=== PATIENT | male | born 1970 | race Caucasian/White ===

== ENCOUNTER → 2019-04-18 17:20 | Outpatient (CLI) | payer OTHER, SELFPAY ==
[2019-04-18 17:39] LABS: Absolute Lymphocyte Count 1.53 X10^3/uL (0.83-4.51); Absolute Neutrophil Count 3.4 X10^3/uL (2.0-7.7); Basophil# 0.02 X10^3/uL; Basophil% 0.4 % (0-1); Eosinophil# 0.04 X10^3/uL; Eosinophils% 0.8 % (0-5); Hematocrit 43.8 % (40-54); Hemoglobin 15.2 g/dL (13.0-16.5); Lymphocyte # 1.53 X10^3/ul (4.0); Lymphocyte % 29.1 % (19-41); Mean Corp Hgb Conc 34.7 g/dL (32-36); Mean Corpuscular Hgb 29.3 pg (27.0-32.0); Mean Corpuscular Volume 84.6 fL (80-94); Mean Platelet Vol. 10.2 fl (6.2-12.0); Monocyte# 0.31 X10^3/uL; Monocyte% 5.9 % (0-10); NRBC Flagged by Analyzer 0 % (0-5); Neutrophil # 3.35 X10^3/uL (2.7-7.7); Neutrophil % 63.6 % (47-70); Platelet Count 155 K/mm3 (150-450); RBC Distribution Width CV 11.9 % (11.6-14.6); RBC Distribution Width SD 36.5 fl (35.1-43.9); Red Blood Count 5.18 M/mm3 (4.6-6.2); White Blood Count 5.3 K/mm3 (4.4-11.0)
[2019-04-18 18:12] LABS: ALB/GLOB Ratio 1.3 RATIO (0.9-2.4); AST(SGOT) 20 U/L (15-37); Alanine Aminotransfer ALT/SGPT 19 U/L (16-61); Albumin, Serum 4.3 g/dL (3.2-5.0); Alkaline Phosphatase 44 U/L (45-117); Anion Gap 8 (5-15); BUN 16 mg/dL (7-18); BUN/Creat Ratio 18.3 RATIO (10-20); CRP, High Sensitivity Cardiac 0.22 mg/L; Calcium,Total 8.8 mg/dL (8.5-10.1); Chloride 107 mmol/L (98-107); Creatinine, Serum 0.87 mg/dL (0.70-1.30); EST Glomerular Filtration Rate 99 mL/min (>60); Est Glom Filt Rate - Afr Amer 120 mL/min (>60); Globulin 3.2 g/dL (2.2-4.2); Glucose 78 mg/dL (74-106); Potassium 3.6 mmol/L (3.5-5.1); Protein, Total 7.5 g/dL (6.4-8.2); Sodium Level 143 mmol/L (136-145)
== END ==
PROVIDERS: Family Provider Family Medicine; PCP Family Medicine; Referring Provider Family Medicine; Visit Provider Family Medicine
DX: Z00.00 Encounter for general adult medical examination without abnormal findings (principal); Z82.49 Family history of ischemic heart disease and other diseases of the circulatory system; Z84.89 Family history of other specified conditions
CPT/HCPCS: 36415; 80053; 80061; 83695; 83704; 85025; 86141

== ENCOUNTER → 2019-04-28 07:13 | Outpatient (CLI) | payer OTHER, SELFPAY ==
[2019-05-02 17:05] LABS: Lipoprotein A 142.7 nmol/L (<75.0)
== END ==
PROVIDERS: Family Provider Family Medicine; PCP Family Medicine; Visit Provider Family Medicine
DX: Z00.00 Encounter for general adult medical examination without abnormal findings (principal); Z82.49 Family history of ischemic heart disease and other diseases of the circulatory system; Z84.89 Family history of other specified conditions
CPT/HCPCS: 83695

== ENCOUNTER → 2019-05-08 14:37 | Outpatient (CLI) | payer SELFPAY ==
[2019-04-28 09:47] VITALS: BMI 26.7
--- NOTE | 2019-05-08 14:45 | CT_ITS ---
STUDY: CARDIAC CALCIUM SCORING - CT CHEST REASON FOR EXAM: Male, 48 years old. Screening RADIATION DOSAGE (If Supplied By Facility): CTDIvol = ( 12.19 ) mGy, DLP = ( 195.04 ) mGycm TECHNIQUE: Axial non-enhanced images were acquired through the heart for the sole purpose of measuring coronary artery calcium. Individualized dose optimization techniques were used for this CT. COMPARISON: None. FINDINGS: Please see the patient's medical record for a personalized calcium score. CT/Limited Chest CT w/CCTA IMPRESSION: Please see the patient's medical record for a personalized calcium score. Please go to: [email or web address] , for a description of the calculator. Electronically Signed: Gallo Moise, at 15:57 EDT Tel , Service support ,
[2019-05-08 14:57] VITALS: BP 115/59; PULSE 67; RESP 19; O2SAT 100; BMI 26.4
--- NOTE | 2019-05-08 17:45 | CA.SCORE ---
Calcium Scoring Date of Study:: 05/08/19 Coronary Calcium Scoring: High-resolution Computed Tomographic imaging of the chest was performed on [05/08/2019], with particular attention paid to the coronary arteries. Images from the examination were analyzed for the presence and extent of coronary artery calcification , using coronary calcium quantification software. The patient tolerated the procedure well and there were no complications. The results of the coronary calcification analysis are provided below. - Findings Left Main (LM): 0 Left Anterior Descending (LAD): 0 Left Circumflex (LCX): 0 Right Coronary Artery (RCA): 0 Total Agatston Score: 0 Percentile Rankinth Calcium Scoring Interpretation: 0 No identifiable atherosclerotic plaque. Very low cardiovascular disease risk. <5% chance of presence coronary artery disease A Negative Examination 1-10 Minimal Plaque burden. Significant coronary artery disease very unlikely. 11-100 Mild plaque burden. Likely mild or minimal coronary atherosclerosis. 101-400 Moderate plaque burden Moderate non-obstructive coronary artery disease highly likely. Over 400 Extensive plaque burden. High likelihood of at least one significant coronary stenosis (>50% diameter) Calcium Score: 0 Negative Examination - The above is suggestive of no significant atherosclerotic plaquing.
== END ==
PROVIDERS: Family Provider Family Medicine; PCP Family Medicine; Referring Provider Internal Medicine Cardiovascular Disease; Visit Provider Internal Medicine Cardiovascular Disease
DX: I45.10 Unspecified right bundle-branch block (principal)
CPT/HCPCS: 75571; 76380

== ENCOUNTER → 2019-06-05 09:20 | Outpatient (CLI) | payer OTHER, SELFPAY ==
[2019-04-28 09:47] VITALS: BMI 26.7
[2019-05-08 14:57] VITALS: BMI 26.4
--- NOTE | 2019-06-05 09:23 | STE_ITS ---
Reason For Study: Abnormal EKG, Chest Pain Stress Results Protocol: Kwabena Protocol Maximum Predicted HR: 171 bpm Target HR: 145 bpm % Maximum Predicted HR: 95 % DurationHeart Rate Stage (mm:ss) (bpm) BP Comment Baseline 73 112/78No Chest Pain Kwabena Protocol Stage I 3:00 92 126/70No Chest Pain Kwabena Protocol Stage II 3:00 109 130/72No Chest Pain Kwabena Protocol Stage III 3:00 129 132/66No Chest Pain Kwabena Protocol Stage IV 3:00 162 140/62No Chest Pain Recovery 82 110/70No Chest Pain Stress Duration: 12:00 mm:ss Maximum Stress HR: 162 bpm METS: 13 Baseline Echocardiogram Findings Stress Echo Wall motion Data Resting WM Intermediate WM Stress WM Interpretation Summary Exercise stress echo. 49-year-old man with a family history of coronary artery disease. Stress protocol: Resting EKG demonstrates sinus bradycardia with a rate of 59 bpm normal intervals are noted resting blood pressures 112/78 mmHg. The patient exercised according to regular Kwabena protocol for total duration of 12 minutes the maximum heart rate attained was 162 bpm which was 94% of maximum predicted heart rate and maximum workload was 13.4 metabolic equivalents. At rest there were no ST or T wave changes noted suggest ischemia peak exercise upsloping ST changes were noted with no meet the criteria for ischemia. No clinical angina was noted. The test was terminated due to leg discomfort. The resting blood pressure was 112/78 mmHg with a peak blood pressure 152/64 mmHg. Stress echocardiographic images. Resting echocardiogram was performed demonstrating estimated ejection fraction of 55 to 60% the patient exercised according to regular Kwabena protocol as noted above for total duration of 13.4 metabolic equivalents. At peak exercise the estimated ejection fraction was approximately 65%. No wall motion of normalities were noted. Conclusion: Exercise stress EKG with no EKG criteria for ischemia at a high workload. Normal resting and stress echocardiographic images. Preserved ejection fraction. Excellent functional capacity Ordering Physician: Perico Santoro Referring Physician: Jose Carlos Stringer Performed By: Sam Garcia RCS
== END ==
PROVIDERS: Family Provider Family Medicine; PCP Family Medicine; Referring Provider Internal Medicine Cardiovascular Disease; Visit Provider Internal Medicine Cardiovascular Disease
DX: R94.31 Abnormal electrocardiogram [ECG] [EKG] (principal); R07.9 Chest pain, unspecified; Z82.49 Family history of ischemic heart disease and other diseases of the circulatory system
CPT/HCPCS: 93017; 93350

== ENCOUNTER 2020-09-13 08:37 | Day surgery (SDC) | payer OTHER, SELFPAY ==
[2019-08-16 07:37] VITALS: BMI 26.4
[2020-09-13] VITALS (7 sets, daily range): BP systolic 85–116; BP diastolic 48–76; PULSE 59–65; RESP 14–16; TEMP 36.4–37; O2SAT 95–100; BMI 28.5
[2020-09-13] MEDS: Lactated Ringers 1,000 ML 100 ML IV (09:15)
--- NOTE | 2020-09-13 09:23 | HP.PCM_ITS ---
History of Present Illness Date of Admission: 09/13/20 The patient is a 50 year old M here for screening colonoscopy. He has never had a colonoscopy in the past. He is on no blood thinners. He has no abdominal pain or blood in his stool. He denies any family history of colon cancer. Past Medical/Surgical History - Planned Operation Planned Operative Procedure/s: Colonoscopy Date of Operative Procedure: 09/13/20 Permit Signed: No Is This Patient Having a Total Joint: No - Previous Hospitalizations/Surgeries HX Hospitalizations: No HX of Surgeries: NONE Any Problems With Anesthesia: No You/Your Family Experience Fever (Hyperthermia) With Anes: No Cholinesterase deficiency: No - Cardiovascular Hx Chest Pain within Last 2 months: No Hx of Irregular Heartbeat and/or Afib: No Hx Heart Attack: No Hx Congestive Heart Failure: No Hx Rheumatic Fever: No Hx Hypertension: No Hx Internal Defibrillator: No Hx Pacemaker: No Hx Cardiac Surgery/Stents/Etc.: No Hx Stress Test: No HX Edema: No Hx Pain in Legs when Walking/Leg Cramps: No - Respiratory Chronic Cough: No HX of Shortness of Breath: No Hoarseness: No Hx Chronic Obstructive Pulmonary Disease (COPD): No Hx Asthma: No Hx Emphysema: No Hx Sleep Apnea: No Hx Oxygen Use at Home: No Hx Respiratory Tract Infection/Cold (presently): No Do You Snore Loudly (louder than talking or can be heard): Yes Do You Often Feel Tired/ Fatigued/ Sleepy Dring Daytime?: No Has Anyone Observed You Stop Breathing During Sleep?: No Result (for STOP score): Negative Smoking Status: Never smoker - Gastrointestinal Hx Gastroesophageal Reflux: No Hx Gastrointestinal Disorders: No Hx Gastrointestinal Bleed: No Hx Ulcer: No Hx Hiatal Hernia: No Difficulty Chewing/Swallowing: No Recent Onset of Swallowing Problems: No Special diet followed at home: No Hx Unplanned Weight Loss of 20#: No HX Unplanned Weight Gain of 20#: No - Neurological Hx Seizures: No HX Syncope/Blackout Spells/Unconsciousness: No Hx CVA/Stroke: No Hx Transient Ischemic Attacks (TIA): No Hx Multiple Sclerosis: No Hx Parkinson's Disease: No Hx Head/Neck Injury: No Hx Headaches: No Hx Back Injury/Pain: No Recent Onset of Speech Difficulty: No Restless Legs: No Does patient have nerve stimulator: No - Blood Disorder Hx Leukemia: No Bleeding Tendencies: No Hx Deep Vein Thrombosis: No Hx High Cholesterol: No Blood Transmitted Disease: No Hx Hepatitis: No Hx Cirrhosis: No Hx Anemia: No Hx Blood Disorders: No - Genitourinary Hx Renal Disease: No - Musculoskeletal Hx Arthritis: No Hx Rheumatoid Arthritis: No Hx Gout: No Recent Onset of an Orthopedic Problem: No - Endocrine Hx Diabetes: No Thyroid Disease: No Hx Steroid Therapy: No - Psycho/Social Hx Substance Use: No Hx Alcohol Use: No Hx Anxiety: No Hx Depression: No Mental Illness: No Hx Dementia: No - Miscellaneous Hx Cancer: No Recent Exposure to Contagious Disease: No Active MRSA: No Hx of C-Diff: No Any Loose Teeth: No Allergies No Known Allergies Allergy (Unverified 09/13/20 09:01) Sibling Family History: Family History (Last Reviewed 08/16/19 @ 07:34 by Tamiko Henson) Sister Sudden cardiac , Onset Age: 50 Grandfather Sudden cardiac , Onset Age: 59 Grandmother Heart disease Heart Disease, - - Discharge Is Pt Admitted From a Senior Living, or a [facility]: No - Physical Exam Vitals/I&O's: Vital Signs Temp Pulse Resp BP Pulse Ox 97.6 F L 62 14 116/75 100 09/13/20 09:02 09/13/20 09:02 09/13/20 09:02 09/13/20 09:02 09/13/20 09:02 Oxygen Delivery Method Room Air Weight: 210 lb 1.608 oz Body Mass Index (BMI) 28.5 General: Alert, Oriented x3 Neck: No JVD Lungs: Normal air movement Cardiovascular: Regular rate, Regular Rhythm Abdomen: Soft, Non Tender, Non-Distended Microbiology Past 72 Hours 09/12/20 08:54 Interface Orders SARS-CoV-2 Antigen (Rapid) - Final Current Medications Lactated Ringer's () 1,000 mls @ 100 mls/hr IV .Q10H GLENDY Last Admin: 09/13/20 09:15 Dose: 100 mls/hr Documented by: Assessment/Plan All Active Problems (Last Reviewed 08/16/19 @ 07:34 by Tamiko Henson) Flu syndrome (Acute) Abnormal electrocardiogram (Acute) Incomplete right bundle branch block (Acute) 50-year-old male for screening colonoscopy I explained endoscopy in detail to the patient. I explained the risks including but not limited to stroke or heart attack with anesthesia, perforation of the GI tract, bleeding, infection. I explained that any of these could necessitate further emergency surgery. The patient understands and all questions were answered sufficiently. The patient wishes to proceed with procedure. Ollie Olivarez MD Pager: [facility] [address] [place] [address] [address] [place] [address] Office: Surgery Risks - Colonoscopy Risks Include but are not Limited To: Risks include but are not limited to: Bleeding, perforation requiring further surgery, inability to complete colonoscopy requiring barium enema.
--- NOTE | 2020-09-13 09:58 | OP.CCLET_ITS ---
09/13/2020 Jose Carlos Stringer [address] [place] [address] Re : Colonoscopy procedure for Jarvis Chau Dear Dr. Stringer This procedure was performed on Sunday, September 13, 2020. My impressions and recommendations are as follows: Impressions : - The entire examined colon is normal on direct and retroflexion views. - No specimens collected. Recommendations : - Discharge patient to home. - Resume previous diet. - Continue present medications. - Repeat colonoscopy in 10 years for screening purposes. My findings are described in the full procedure note, which is enclosed. If I can be of further assistance, please feel free to contact me at Doctor phone number(s): , Work: . Sincerely, Ollie Olivarez MD 09/13/2020 9:58:14 AM This report has been signed electronically.
--- NOTE | 2020-09-13 09:58 | OP.COLON_ITS ---
Patient Name: Jarvis Chau Procedure Date: 09/13/2020 9:29 AM Date of : 1970 Age: 50 Procedure: Colonoscopy Indications: Screening for colorectal malignant neoplasm Providers: Ollie Olivarez MD Referring MD: Jose Carlos Stringer Medicines: Monitored Anesthesia Care Patient Profile: This is a 50 year old male. Refer to note in patient chart for documentation of history and physical. Last Colonoscopy: none. The patient's first colonoscopy is today. Complications: No immediate complications. Procedure: Pre-Anesthesia Assessment: - Prior to the procedure, a History and Physical was performed, and patient medications and allergies were reviewed. The patient's tolerance of previous anesthesia was also reviewed. The risks and benefits of the procedure and the sedation options and risks were discussed with the patient. All questions were answered, and informed consent was obtained. Prior Anticoagulants: The patient has taken no previous anticoagulant or antiplatelet agents. After reviewing the risks and benefits, the patient was deemed in satisfactory condition to undergo the procedure. After I obtained informed consent, the scope was passed under direct vision. Throughout the procedure, the patient's blood pressure, pulse, and oxygen saturations were monitored continuously. The pediatric colonoscope was introduced through the anus and advanced to the cecum, identified by appendiceal orifice and ileocecal valve. The colonoscopy was performed without difficulty. The patient tolerated the procedure well. The quality of the bowel preparation was good. Scope In: 9:43:06 AM Scope Withdrawal Time 0 hours 6 minutes 6 seconds Scope Out: 9:55:12 AM Total Procedure Duration Time 0 hours 12 minutes 6 seconds Findings: The entire examined colon appeared normal on direct and retroflexion views. Impression: - The entire examined colon is normal on direct and retroflexion views. - No specimens collected. Recommendation: - Discharge patient to home. - Resume previous diet. - Continue present medications. - Repeat colonoscopy in 10 years for screening purposes. Procedure Code(s): --- Professional --- 25116, Colonoscopy, flexible; diagnostic, including collection of specimen(s) by brushing or washing, when performed (separate procedure) Diagnosis Code(s): --- Professional --- Z12.11, Encounter for screening for malignant neoplasm of colon CPT copyright 2017 [employer]. All rights reserved. The codes documented in this report are preliminary and upon long distance operator review may be revised to meet current compliance requirements. Ollie Olivarez MD 09/13/2020 9:58:14 AM This report has been signed electronically. Number of Addenda: 0 Note Initiated On: 09/13/2020 9:29 AM
== END 2020-09-13 10:33 | disposition home or self-care (01) ==
LOC: EN 08:37 → AC 08:37
PROVIDERS: PCP Family Medicine; Referring Provider Family Medicine; Visit Provider Surgery
PROC: 0DJD8ZZ Inspection of Lower Intestinal Tract, Via Natural or Artificial Opening Endoscopic (ICD-10-PCS; CPT 45378; principal; 2020-09-13 09:55)
DX: Z12.11 Encounter for screening for malignant neoplasm of colon (principal); Z20.822 Contact with and (suspected) exposure to COVID-19
CPT/HCPCS: 45378; 87426; C9803; J7120

== ENCOUNTER 2021-02-21 17:07 | Emergency (ER) | payer OTHER, SELFPAY ==
[2020-09-13 09:02] VITALS: BMI 28.5
[2021-02-21 17:08] VITALS: BP 126/66; PULSE 66; RESP 15; TEMP 36.4; O2SAT 98; BMI 28.5
--- NOTE | 2021-02-21 17:29 | EDS_ITS ---
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 He notes that his lip started to swell so he went to the pharmacy and took a Benadryl. He reports that when he gets stung by bumblebee's about 2 hours after the sting he becomes sick. Never been stung by a hornet before he wanted to be evaluated. He denies any difficulty breathing. He does note that the lip swelling is coming into the right side of his neck. [facility] Medical History (Updated 02/21/21 @ 17:[address] Mark Hope DO) Basal cell carcinoma Family history of coronary artery disease Family history sudden in sister Home Medications prednisone 60 mg PO DAILY #12 tablet 02/21/21 [Rx Last Taken Unknown] Allergy/AdvReac Type Severity Reaction Status Date / Time No Known Allergies Allergy Unverified 02/21/21 17:10 Family History Sister Sudden cardiac , Onset Age: 50 Grandfather Sudden cardiac , Onset Age: 59 Grandmother Heart disease PPM Surgical History History of basal cell carcinoma excision History of melanoma excision Social History Smoking Status: Never smoker alcohol intake: current alcohol intake frequency: a few times a month ROS ROS ED Constitutional Constitutional ED: Denies chills or weight loss Eyes Eyes: Denies change in vision or diplopia ENT ENT ED: Reports other Details: Lower lip swelling ; Denies ear pain, rhinorrhea or sore throat Cardiovascular Cardiovascular: Denies chest pain, orthopnea, palpitations or racing heartbeat Respiratory/Chest Respiratory/Chest: Denies cough, dyspnea or orthopnea Gastrointestinal Gastrointestinal: Denies abdominal pain, diarrhea, nausea or vomiting Genitourinary Genitourinary ED: Denies dysuria, hematuria or urinary frequency Musculoskeletal Musculoskeletal: Denies arthralgias or myalgias Integumentary Denies abscess or rash Neurologic Neurologic: Denies headache(s) or weakness Psychiatric Psychiatric: Denies anxiety, depression, suicidal ideation or suicidal thoughts Endocrine Endocrinology: Denies polydipsia, polyphagia or polyuria Allergic/Immunologic Allergic/Immunologic ED: Denies mouth swelling, tongue swelling or urticaria EXAM Physical Exam Const Vital Signs: 02/21/21 17:08 Temperature 97.5 F L Temperature Source Temporal Pulse Rate 66 Respiratory Rate 15 Blood Pressure 126/66 H Blood Pressure Mean 86 Pulse Ox 98 Oxygen Delivery Method Room Air Positive well nourished and well developed General Appearance ED: well developed HEENT Reports normocephalic, head/scalp atraumatic and moist mucous membranes HEENT Narrative: There is swelling of the lower lip. There is swelling along the right inferior aspect of the mandible to the angle. No tongue or uvula swelling he appears to be handling secretions normally Eyes PERRL and EOMs intact bilaterally Neck no lymphadenopathy, supple and no JVD Resp normal respiratory effort and clear to auscultation bilaterally Cardio regular rate, regular rhythm and no murmurs GI normal to inspection, nondistended, normoactive bowel sounds and non-tender Palpation: soft Back/Spine no CVA tenderness and normal ROM Extremity normal to inspection General Extremety ED: Negative for edema General Extremity: Negative for edema Neuro oriented x3 and CN's II-XII intact bilaterally Sensorium / Orientation: alert Motor Exam: strength 5/5 throughout Psych mental status grossly normal Mood & Affect: Negative for depressed or tearful Skin no rashes or lesions noted and no wounds MDM MDM MDM Narrative Medical decision making narrative: Patient received prednisone and Pepcid. He was observed. 3 1/2 hours post envenomation he continues to do well. No further progression of his swelling. All right for him to have prednisone at home. Would continue Benadryl. Return if worsening or concerns. Discharge Plan Triage Chief Complaint: Allergic Reaction ED Provider: Mark Hope Dx/Rx/DC Orders Clinical Impression: Hornet sting Instructions: ED Insect Sting, Local Reaction Prescriptions: New prednisone 20 MG tablet 60 mg PO DAILY Qty: 12 RF: 0 Primary Care Provider: Jose Carlos Stringer Referrals: Jose Carlos Stringer DO [Primary Care Provider] - As Needed Disposition Disposition: Home, Self Care
[2021-02-21] MEDS: predniSONE 20 MG Tablet 60 MG PO (17:42)
[2021-02-21] MEDS: Famotidine 20 MG Tablet 40 MG PO (18:03)
[2021-02-21 19:03] VITALS: BP 114/74; PULSE 63; RESP 16; O2SAT 99
== END 2021-02-21 19:04 | disposition home or self-care (01) ==
LOC: ED 17:32
PROVIDERS: Emergency Provider Emergency Medicine; PCP Family Medicine
DX: T63.441A Toxic effect of venom of bees, accidental (unintentional), initial encounter (principal); T78.49XA Other allergy, initial encounter; R22.0 Localized swelling, mass and lump, head; Y92.9 Unspecified place or not applicable; Z85.828 Personal history of other malignant neoplasm of skin
CPT/HCPCS: 99283

== ENCOUNTER → 2022-07-23 | Outpatient (CLI) | payer OTHER, SELFPAY ==
[2022-07-23 11:03] LABS: Anion Gap 7 (5-15); BUN 15 mg/dL (7-18); BUN/Creat Ratio 14.4 RATIO (10-20); Calcium,Total 9.1 mg/dL (8.5-10.1); Chloride 103 mmol/L (98-107); Creatinine, Serum 1.04 mg/dL (0.70-1.30); EST Glomerular Filtration Rate 80 mL/min (>60); Est Glom Filt Rate - Afr Amer 96 mL/min (>60); Glucose 106 mg/dL (74-106); Potassium 3.9 mmol/L (3.5-5.1); Sodium Level 138 mmol/L (136-145)
== END | disposition home or self-care (01) ==
PROVIDERS: PCP Family Medicine; Referring Provider Physician Assistant; Visit Provider Physician Assistant
DX: U07.1 COVID-19 (principal)
CPT/HCPCS: 36415; 80048

== ENCOUNTER 2024-09-28 18:32 | Emergency (ER) | payer OTHER, SELFPAY ==
[2024-09-28 18:33] VITALS: BP 125/82; PULSE 67; RESP 18; TEMP 36.7; O2SAT 97
--- NOTE | 2024-09-28 19:19 | RAD_ITS ---
PROCEDURE: TIBIA FIBULA 2 VIEWS REASON FOR EXAM: Trauma TECHNIQUE: 2 view(s) of each tibia and fibula COMPARISON: None. FINDINGS: LEFT TIBIA / FIBULA: No fracture. No suspicious bone lesion. Normal alignment at the knee and ankle. Soft tissues are unremarkable. RAD/Tibia & Fibula 2 Views IMPRESSION: No acute osseous abnormality in the left tibia and fibula. Reading Location: [facility]
--- NOTE | 2024-09-28 19:19 | RAD_ITS ---
PROCEDURE: CHEST PA AND LATERAL REASON FOR EXAM: Trauma TECHNIQUE: Frontal and lateral views of the chest. COMPARISON: None. FINDINGS: The heart size is normal. The mediastinal contour is unremarkable. The lungs are clear. Degenerative changes are identified within the thoracic spine. RAD/Chest PA and Lateral IMPRESSION: No radiographic evidence of acute cardiopulmonary disease Reading Location: [facility]
--- NOTE | 2024-09-28 19:19 | RAD_ITS ---
PROCEDURE: SHOULDER MIN 2 VIEWS REASON FOR EXAM: Trauma TECHNIQUE: One (1) view of each shoulder COMPARISON: None. FINDINGS: RIGHT SHOULDER: No fracture. No suspicious bone lesion. Normal alignment of the acromioclavicular and glenohumeral joints. Soft tissues are unremarkable. RAD/Shoulder min 2 Views IMPRESSION: No acute osseous abnormality in the right shoulder Reading Location: [facility]
--- NOTE | 2024-09-28 19:19 | RAD_ITS ---
PROCEDURE: THORACIC SPINE 2 VIEWS REASON FOR EXAM: Trauma TECHNIQUE: Single lateral view of the thoracic spine COMPARISON: None. FINDINGS: No evidence of fracture. Mild wedging of the thoracic vertebral bodies. Disc space heights are preserved. Mild kyphosis. No spondylolisthesis. RAD/Thoracic Spine 2 Views IMPRESSION: Mild degenerative changes throughout the thoracic spine with no acute osseous a bnormality Reading Location: [facility]
--- NOTE | 2024-09-28 19:21 | EDS_ITS ---
HPI History of Present Illness Chief Complaint: Trauma Informant: patient and spouse/S.O. Onset/Context/Timing Onset: Today and Hours Mechanism/Context: Blunt Injury Location of pain/injuries: Right shoulder and Left lower leg Quality of Pain: Sharp Current Severity: Moderate Maximum Severity: Moderate Associated Symptoms Associated Symptoms: Negative for Parasthesias, Weakness, Loss of function, Inability to ambulate, Loss of consciousness or Amnesia Narrative Narrative: Healthy 54-year-old male no signal past medical history other than skin cancer. On no medications. No blood thinners. He was trampled by about 1300 pound cow. Complaining primarily of right shoulder pain. No LOC. No head injury. Denies neck pain. Also injury to his left lower leg. This occurred about 5:45 tonight. Denies any chest or abdominal pain. Prior similar symptoms: No Recent Illness/Hospitalization: No PFSH PFSH Medical History COVID-19 Family history of coronary artery disease Family history sudden in sister Basal cell carcinoma Home Medications ?Medication ?Instructions ?Recorded ?Last Taken ?Type dexamethasone 6 mg tablet 6 mg PO DAILY #5 tabs Unknown Rx metaxalone 800 mg tablet 800 mg PO TID #21 tabs 09/28 Unknown Rx Allergy/AdvReac Type Severity Reaction Status Date / Time No Known Allergies Allergy Verified 09/28/24 18:33 Family History Sister Sudden cardiac , Onset Age: 50 Grandfather Sudden cardiac , Onset Age: 59 Grandmother Heart disease PPM Surgical History History of basal cell carcinoma excision History of melanoma excision Social History Smoking Status: Never smoker alcohol intake: current alcohol intake frequency: a few times a month ROS ROS ED ROS Narrative Denies recent illness. Constitutional Constitutional ED: Denies chills or fever(s) Eyes Eyes: Denies blurry vision ENT ENT ED: Denies ear pain Cardiovascular Cardiovascular: Denies chest pain Respiratory/Chest Respiratory/Chest: Denies cough or dyspnea Gastrointestinal Gastrointestinal: Denies abdominal pain Genitourinary Genitourinary ED: Denies dysuria or hematuria Musculoskeletal Musculoskeletal: Reports back pain and other; Denies arthralgias Neurologic Neurologic: Denies headache(s) Psychiatric Psychiatric: Denies anxiety Endocrine Endocrinology: Denies cold intolerance Hematologic/Lymphatic Hematologic/Lymphatic: Denies easy bleeding, easy bruising or lymphadenopathy Allergic/Immunologic Allergic/Immunologic ED: Denies mouth swelling, tongue swelling or urticaria EXAM Physical Exam Narrative Exam Narrative: Well-appearing 55-year-old male. Sitting upright in bed. 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 Vital signs are stable afebrile. He is no distress. H EENT exam pupils are round reactive light. No signs of trauma to his face or scalp. Nontender. No hematomas. Neck and C-spine nontender. Trachea midline. Lungs clear to auscultation bilaterally. Heart regular rhythm rate about 70 no murmur. Chest wall and ribs anteriorly nontender. Abdomen soft nontender. No peritoneal signs. No bruising or signs of trauma. Pelvic girdle intact. Moving all 4 extremities. Normal range of motion. No deformity. 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 Equal symmetrical radial pulses. Normal range of motion of both lower extremities. He has tenderness to his left proximal calf. There is no bony deformity. He has normal dorsi and plantarflexion. Normal touch sensation and strength. Normal range of motion. Back he has tenderness along his left posterior inferior shoulder blade. Mildly over the rib cage posteriorly in that same area. No bruising. Thoracic and lumbar spine are nontender. There is no signs of ecchymosis or bruising to his back. Neurologically is awake and alert. GCS of 15. No focal motor or sensory deficits. Answering questions following commands. Normal strength and sensation. Const Vital Signs: 09/28/24 18:33 09/28/24 18:39 09/28/24 20:44 Temperature 98.0 F Temperature Source Temporal Pulse Rate 67 70 Respiratory Rate 18 16 Respiratory Effort Normal Non-Labored Blood Pressure 125/82 H 122/74 H Blood Pressure Mean 96 90 Pulse Ox 97 99 Oxygen Delivery Method Room Air 09/28/24 20:45 Temperature 97.9 F Temperature Source Pulse Rate 70 Respiratory Rate 16 Respiratory Effort Blood Pressure 122/74 H Blood Pressure Mean 90 Pulse Ox 99 Oxygen Delivery Method Positive well nourished and well developed; Negative for cachectic, contractures or unkempt General Appearance ED: well developed and NAD; Negative for unkempt, cachectic or contractures Nutritional Appearance: Negative for cachectic HEENT atraumatic; Negative for trauma or tenderness Eyes PERRL and EOMs intact bilaterally Neck full ROM General: Negative for tenderness Chest Wall inspection of chest normal and palpation of chest normal Resp normal respiratory effort and clear to auscultation bilaterally Auscultation: Negative for rales, rhonchi, wheezes or diminished lung sounds Cardio regular rhythm, S1 normal heart sound, S2 normal heart sound and no murmurs Palpation: Negative for palpable S3 Rate: regular rate GI normal to inspection, nondistended, normoactive bowel sounds, non-tender, non- distended and no masses Auscultation: normoactive bowel sounds Palpation: soft; Negative for tender, guarding or rebound tenderness present Back/Spine normal to inspection and no thoracic nor lumbar tenderness Back/Spine Narrative: Tenderness along the right posterior shoulder blade. No ecchymosis or bruising. Posterior ribs in that area mildly tender. No crepitance or subcu air. General Back: Negative for CVA tenderness Thoracic Spine / Upper Back: Negative for thoracic spinal tenderness Extremity normal to inspection and full ROM Extremity Narrative: Except left posterior calf tenderness consistent with soft tissue contusion. No bruising. No bony deformity. Normal range of motion of both upper and lower extremities. Neuro oriented x3, CN's II-XII intact bilaterally, moves all extremities, no focal motor deficits and no sensory deficits noted Mana Coma Scale: document GCS findings Spontaneous Obeys Commands Oriented 15 Sensorium / Orientation: alert, oriented to person, oriented to place and oriented to time; Negative for orientation impaired Motor Exam: strength 5/5 throughout Psych mental status grossly normal and thought process normal Appearance: Negative for unkempt Attitude: No agitated Mood & Affect: Negative for depressed, anxious or tearful Skin no rashes or lesions noted, no wounds, skin turgor normal and no jaundice Rashes: No rashes noted Trauma: Negative for abrasion Wounds: Negative for wounds noted MDM MDM MDM Narrative Medical decision making narrative: 54-year-old male run over by a 1300 pound cow. Complaining of pain by his right shoulder blade posterior right sided rib cage and left lower leg. Exam otherwise is benign. He was not knocked out. I do not think he needs any CAT scans. His abdomen is completely nontender he has no abdominal or anterior chest pain. Plain x-rays of be obtained. He wanted something for pain but did not want a narcotic open given IV Toradol and some Skelaxin for muscle spasms. Repeat exam around 8:40 PM. Still tenderness around the soft tissue inferior and medial to the scapula. We went over his x-rays. Chest and abdomen are benign. He has normal range of motion of his neck. We talked about his x-rays being normal. We discussed a CAT scan which she did not want at this time. He knows that he is not improving he can follow-up and we will get a CAT scan of his chest and thoracic spine. History & Record Review Discussion w/independent historian: Patient and Family ( at bedside.) Radiography Chest X-Ray - ED: 2 View Diagnostic Testing: Clinical Impression(s) from Imaging Studies Chest X-Ray 09/28/24 19:19 IMPRESSION: No radiographic evidence of acute cardiopulmonary disease Reading Location: [facility] Shoulder X-Ray 09/28/24 19:19 IMPRESSION: No acute osseous abnormality in the right shoulder Reading Location: [facility] [facility] [employer] [facility] Thoracic Spine X-Ray 09/28/24 19:19 IMPRESSION: Mild degenerative changes throughout the thoracic spine with no acute osseous abnormality Reading Location: [facility] Tibia/Fibula X-Ray 09/28/24 19:19 IMPRESSION: No acute osseous abnormality in the left tibia and fibula. Reading Location: [facility] Chest x-ray, 2 views AP and lateral, interpreted by myself and the radiologist shows no acute abnormality. No fracture. No pneumothorax. Normal cardiac silhouette. Normal lung ybarra. Right shoulder x-ray , 4 views interpreted myself and radiologist shows no fracture or dislocation. Scapula appears normal. Right tib-fib x-ray 4 views interpreted myself and radiologist shows no fracture or dislocation. Discharge Plan Triage Chief Complaint: Trauma ED Provider: Alek Flores Dx/Rx/DC Orders Clinical Impression: Back contusion, Contusion of leg Instructions: ED Back Contusion, ED Contusion, Lower Extremity Prescriptions: New metaxalone 800 mg tablet 800 mg PO TID Qty: 21 0RF No Action dexamethasone 6 mg tablet 6 mg PO DAILY Qty: 5 0RF Primary Care Provider: Jose Carlos Stringer Referrals: Jose Carlos Stringer, [Primary Care Provider] - 1 Week if not improving Activity Restrictions/Additional Instructions: Ice all sore areas to decrease pain and inflammation. Hot shower, warm bath, hot tub, massage to relax the muscles Alternate Motrin for pain and inflammation and Tylenol for pain. The muscle relaxant Skelaxin 3 times a day to help with muscle spasms. If you are not improving and getting worse you may need a CAT scan. Call or get a hold me if you need anything. Print Language: Lithuanian Disposition Disposition: Home, Self Care
[2024-09-28] MEDS: Ketorolac 30 MG/ML Syringe IV (19:45)
[2024-09-28] MEDS: Metaxalone 800 MG Tablet PO (19:55)
[2024-09-28 20:44] VITALS: BP 122/74; PULSE 70; RESP 16; O2SAT 99
[2024-09-28 20:45] VITALS: BP 122/74; PULSE 70; RESP 16; TEMP 36.6; O2SAT 99
== END 2024-09-28 21:05 | disposition home or self-care (01) ==
PROVIDERS: Emergency Provider Emergency Medicine; PCP Family Medicine; Referring Provider Emergency Medicine; Visit Provider Emergency Medicine
DX: S20.229A Contusion of unspecified back wall of thorax, initial encounter (principal); S80.12XA Contusion of left lower leg, initial encounter; M25.511 Pain in right shoulder; R07.82 Intercostal pain; W55.22XA Struck by cow, initial encounter
CPT/HCPCS: 71046; 72070; 73030; 73590; 96374; 99283; A4216

== ENCOUNTER → 2024-09-30 | Outpatient (CLI) | payer OTHER, SELFPAY ==
--- NOTE | 2024-09-30 10:56 | CT_ITS ---
PROCEDURE: CHEST WITHOUT CONTRAST REASON FOR EXAM: Trauma, right scapula, posterior rib and upper thoracic pain TECHNIQUE: Chest CT without contrast. COMPARISON: None. FINDINGS: Hardware: None. Lymph nodes: No mediastinal hilar or axillary lymphadenopathy. Heart and Vasculature: Normal heart size. No pericardial effusion. Thoracic aorta and pulmonary arteries have normal contours; noncontrast technique limits evaluation. Coronary Artery Calcifications: Lungs and Airways: The lungs are normally expanded and clear. Pleura: No pleural effusion. No pneumothorax. Upper Abdomen: Visualized portions of the upper abdominal viscera are unremarkable. Bones: Bone windows are unremarkable. No acute fracture. CT/Chest without Contrast IMPRESSION: No acute or significant CT abnormality in the chest. One or more dose reduction techniques were used (e.g., Automated exposure contr ol, adjustment of the mA and/or kV according to patient size, use of iterative reconstruction technique). Reading Location: [facility]
== END | disposition home or self-care (01) ==
LOC: CT 10:55
PROVIDERS: PCP Family Medicine; Referring Provider Emergency Medicine; Visit Provider Emergency Medicine
DX: R07.82 Intercostal pain (principal); M25.511 Pain in right shoulder; M54.6 Pain in thoracic spine
CPT/HCPCS: 71250

== ENCOUNTER → 2024-10-17 | Outpatient (CLI) | payer OTHER, SELFPAY ==
--- NOTE | 2024-10-17 06:45 | RAD_ITS ---
PROCEDURE: ORBITS FOR FOREIGN BODY REASON FOR EXAM: HX METAL TO EYE; PRE MRI TECHNIQUE: 2 view(s) of the orbits. COMPARISON: None. FINDINGS: No evidence of displaced orbit fracture. No radiopaque foreign body. Visualized paranasal sinuses appear clear. RAD/Orbits for Foreign Body IMPRESSION: NEGATIVE ORBIT X-RAYS Reading Location: [id number]
--- NOTE | 2024-10-17 07:04 | MRI_ITS ---
PROCEDURE: SPINE CERVICAL (ROUTINE) REASON FOR EXAM: PAIN TECHNIQUE: Cervical spine MRI without intravenous gadolinium-based contrast. CONTRAST: None COMPARISON: Cervical spinal radiographs 10/06/2024. Comparison also made with CT chest 09/30/2024. FINDINGS: Vertebral heights are preserved. No suspicious or appreciable marrow abnormality. Known nondisplaced fracture involving the RIGHT lateral aspect of C7 much better seen 09/30/2024 with mild marrow edema in the region extending into the right lateral mass/articular processes and pedicle. Note that some of this anatomy extends lateral beyond the field view of sagittal sequences. Similar trace anterolisthesis at C6-C7, presumably degenerative. Cord signal within limits. C2-3: Minimal uncovertebral arthropathy. No appreciable spinal canal or foraminal stenosis. C3-4: Minimal uncovertebral arthropathy. No appreciable spinal canal or foraminal stenosis. C4-5: Minimal uncovertebral arthropathy, [id number]-right. No spinal canal or foraminal stenosis. C5-6: Mild broad-based disc bulging asymmetric to the left. Minimal facet/uncovertebral arthropathy. No significant spinal canal or right foraminal stenosis. Mild left foraminal stenosis. C6-7: Trace anterolisthesis as above with associated disc uncovering. Mild loss of disc height with diffuse disc bulging and superimposed right foraminal disc protrusion. Facet/uncovertebral arthropathy, [id number]-left. Moderate/severe right and mild left foraminal stenosis. C7-T1: No appreciable spinal canal or foraminal stenosis. Other:: Mild/moderate mucosal thickening in the partially imaged right maxillary right maxillary sinus. MRI/Spine Cervical (Routine) IMPRESSION: 1. Nondisplaced fracture involving the right lateral aspect of C7 much better s een on CT chest 10/01/2024. 2. Multilevel spondylosis as above. Foraminal stenoses as detailed, up to moder ate/severe on the right at C6-C7. No significant spinal canal stenosis. 3. Right maxillary paranasal sinus disease. 4. Additional description as above. Reading Location: [id number]
== END | disposition home or self-care (01) ==
LOC: MRI 06:56
PROVIDERS: PCP Family Medicine; Referring Provider Student in an Organized Health Care Education/Training Program; Visit Provider Student in an Organized Health Care Education/Training Program
DX: S12.691A Other nondisplaced fracture of seventh cervical vertebra, initial encounter for closed fracture (principal); M54.12 Radiculopathy, cervical region
CPT/HCPCS: 70030; 72141

== ENCOUNTER → 2024-10-20 | Outpatient (CLI) | payer OTHER, SELFPAY ==
--- NOTE | 2024-10-20 08:58 | RAD_ITS ---
EXAM: XR Cervical Spine, 2 or 3 Views CLINICAL INDICATION: PAIN TECHNIQUE: Frontal and lateral views of the cervical spine. COMPARISON: No relevant prior studies available. FINDINGS: VERTEBRAE: Unremarkable. No definite fracture. Normal alignment. DISC SPACES: No acute findings. No significant narrowing. SOFT TISSUES: Unremarkable. RAD/Cerv Spine 2 or 3 Views IMPRESSION: Unremarkable exam. [facility]
== END | disposition home or self-care (01) ==
LOC: RAD 08:53
PROVIDERS: PCP Family Medicine; Referring Provider Orthopaedic Surgery Orthopaedic Surgery of the Spine; Visit Provider Orthopaedic Surgery Orthopaedic Surgery of the Spine
DX: S12.691A Other nondisplaced fracture of seventh cervical vertebra, initial encounter for closed fracture (principal); X58.XXXA Exposure to other specified factors, initial encounter
CPT/HCPCS: 72040

== ENCOUNTER → 2024-11-09 | Outpatient (CLI) | payer OTHER, SELFPAY ==
--- NOTE | 2024-11-09 07:30 | RAD_ITS ---
EXAM: XR Cervical Spine, 2 or 3 Views CLINICAL INDICATION: PAIN TECHNIQUE: Frontal and lateral views of the cervical spine. COMPARISON: No relevant prior studies available. FINDINGS: VERTEBRAE: Grade 1 anterior spondylolisthesis of C6 over C7. No definite fracture. DISC SPACES: No acute findings. No significant narrowing. SOFT TISSUES: Unremarkable. RAD/Cerv Spine 2 or 3 Views IMPRESSION: Grade 1 anterior spondylolisthesis of C6 over C7. Reading Location: [facility]
== END | disposition home or self-care (01) ==
PROVIDERS: PCP Family Medicine; Referring Provider Orthopaedic Surgery Orthopaedic Surgery of the Spine; Visit Provider Orthopaedic Surgery Orthopaedic Surgery of the Spine
DX: M43.12 Spondylolisthesis, cervical region (principal); S12.691A Other nondisplaced fracture of seventh cervical vertebra, initial encounter for closed fracture; X58.XXXA Exposure to other specified factors, initial encounter
CPT/HCPCS: 72040

== ENCOUNTER 2024-12-08 12:30 | Outpatient (RCR) | payer OTHER, SELFPAY ==
--- NOTE | 2024-11-14 14:38 | HP.PTEVAL ---
Patient's Visit Information Visit Information Visit Information: SVEN BURROUGHS is a 54 year old M referred to Physical Therapy by Dr. Aroldo Saucedo MD with a diagnosis of CLOSED C7 FX AND CERVICAL RADICULOPATHY. Date of Evaluation: 11/14/24 Physical Therapist: Anna Argueta PT, Cert MDT Visit Plan Frequency: 2-3x /Week Duration: 4-6 Weeks Plan: *AVOID PERIPHERALIZATION OF PAIN, NUMBNESS AND TINGLING WITH EXERCISE* POSTURE CORRECTION/STRENGTHENING. INSTRUCTION IN APPROPRIATE BODY MECHANICS AND ACTIVITY MODIFICATIONS. CERVICAL ISOMETRICS. R UE STRENGTHEING: FOCUS ON SCAPULAR STRENGTH AND STABILIZATION ALONG WITH TRICEP STENGTHENING R UE. HEP INSTRUCTION. Subjective Subjective: Work/Leisure: [employer] Present symptoms: NO PAIN FOR ABOUT A WEEK. SOME PAIN DOWN THE BACK OF R ARM TO FOREARM. ALSO SOME PAIN IN R SHLD BLADE AROUND UNDER ARM PIT INTO CHEST - AGAIN NOT FOR ABOUT A WEEK. NEAR CONSTANT DISTAL FINGER NUMBESS DIGITS 2, 3 AND 4. DENIES NECK PAIN. DENIES ANY OTHER NUMBENSS. NO L UE SX'S. TWO NIGHTS AGO HAD SOME CRAMPING AND TIGHTENING IN R SHLD BLADE/ARM PIT AND CHEST AREA THAT IS PAINFUL - THIS COMES AND GOES MAINLY AT NIGHT WITH REACHING. CHIEF COMPLAINT IS R UE WEAKNESS. NUMBNESS STARTED 4 WKS POST ACCIDENT. Present since: 09/28/24 Getting Better, Getting Worse or Staying the Same: GETTING BETTER. A LOT BETTER THAN IT WAS AND STILL IMPROVING. REPORTS 80% IMPROVEMENT. Pain Scale: Worst - 5/10 Least - 0/10 Currently: 0/10 Commenced as a result of: RAN OVER BY A HEIFER. Symptoms at onset: BACK SNAPPED AND CRACKED. Worse: STILL HAVING WEAKNESS WITH STEERING, REACHING, PUSHING, PULLING. PAIN: REACHING UP, SHOVELING, PUSHING, PROLONGED SITTING Better: CURRENTLY THE PAIN IS FLEETING AND DOESN'T HANG AROUND. IF REACHING PROVOKES IT BRING ARM DOWN TAKES IT AWAY. Disturbed sleep: NO. WEARING NECK BRACE AT NIGHT. Previous history/Previous treatment: UNREMARKABLE This episode: INITIALLY DIDN'T SEE THE FRACTURE UNTIL CAT SCAN ABOUT 1 WK POST ACCIDENT. THEN WORE NECK BRACE ALL THE TIME X 5 WKS EXCEPT TO SHOWER. LAST Wednesday11/09/24 ALLOWED TO START WEANING OUT OF NECK BRACE. 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 OUT OF NECK BRACE A COUPLE HOURS A DAY. ONCE ABLE TO GO ALL DAY WITHOUT IT CAN SLEEP WITHOUT IT. NECK GETS TIRED WHEN OUT OF IT A COUPLE HOURS. NO INCREASED C/O PAIN OR NUMBNESS SINCE STARTING TO WEAN OUT OF BRACE. NO SURGERY. CONSIDERING SURGERY IF DOESN'T GET STRENGTH BACK. 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 MEDICATION INITIALLY BUT NONE FOR A COUPLE OF WEEKS. Dizziness: NO Tinnitus: NO Nausea: NO Shortness of Breath: NO Difficulty Swallowing: NO Gait: NORMAL Imaging: SEE [facility] EMR PMH/Recent major surgery: UNREMARKABLE. OTHER: NO FURTHER FOLLOW UP SCHEDULED WITH DR. SAUCEDO UNLESS PATIENT DOESN'T GET BETTER AND WANTS TO HAVE SURGERY. NO SPECIFIC RESTRICTIONS AT THIS POINT. Objective Objective: Sitting Posture/Standing Posture: FH AND ROUNDED SHOULDERS. NO TORTICOLLIS. Active Correction of posture: ABLE TO CORRECT BUT NOT MAINTAIN. Other Observations: THIS PATIENT AMBULATES INDEP'LY INTO PT WITHOUT WEARING NECK BRACE BUT HE BROUGHT IT WITH HIM TO DAY. Sensory deficit: DECREASED LIGHT TOUCH SENSATION ULNAR R WRIST AND R 3RD DIGIT COMPARED TO LEFT. ROM deficit: FULL CHUNG UE ROM ALL PLANES BUT C/O TIGHT FEELING IN R CHEST WITH FULL ELEVATION OF R UE. 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 R SHLD GROSSLY 3+/5, BICEPS 4/5, TRICEPS 2+/5, R CURING OVEN ATTENDANT STRENGTH 104 LBS. Reflexes: UNABLE TO ELICIT CHUNG UE DTR'S Dural Signs: + R UE. Cervical Mvmt Loss: Flex: NIL Pro: NIL Ext: MOD Ret: DAVID RSB: MOD LSB: MOD R Rot: MIN L Rot: MIN Postural strength: POOR. FATIGUES QUICKLY. Balance/Special Test Scores Oswestry Neck Score: 2 Goals Goal 1:: INCREASE FUNCTIONAL STRENGTH OF R UE SYMMETRICAL WITH L UE. Goal Time Frame: 6-8 Weeks Goal 2:: INCREASE FUNCTIONAL ROM OF CERVICAL SPINE TO WFL ALL PLANES. Goal Time Frame: 4-6 Weeks Goal 3:: PATIENT WILL DEMONSTRATE GOOD POSTURE CONTROL THROUGHOUT THERAPY SESSIONS WITHOUT CUEING. Goal Time Frame: 2-4 Weeks Goal 4:: 0-2/10 R UE PAIN WITH NORMAL DAILY AND FARMING ACTIVITIES. Goal Time Frame: 6-8 Weeks Goal Time Frame: 4-6 Weeks Rehabilitation Potential Physical Therapy Diagnosis: POSTURAL AND NECK STIFFNESS AND WEAKNESS. R UE WEAKNESS ESPECIALLY IN TRICEPS. Rehabilitation Potential: Good Anticipated Interventions Patient/Client Instruction: Educate patient on: Condition, Plan of Care and Risk Factors For the Purpose of:: To improve self management Therapeutic Exercise to Include: Strength training, Body mechanics, Postural training, Flexibilty training, Neuromotor development and Scapular Strength/Stabilization For the Purpose of:: To decrease pain, To increase ROM, To improve muscle performance and motor function, To improve ability to perform ADL's, To increase tolerance to activity/condition/position, To improve ability of physical actions for home/community/work/leisure, To decrease soft tissue restriction, To increase flexibility/ROM and To improve self management Cryotherapy (ice pack, ice massage): Yes Thermo therapy (hot pack): Yes For the Purpose of:: To decrease pain, To decrease swelling/inflammation and To improve nutrient delivery to tissue Text: Thank you for the opportunity to evaluate your patient. For Medicare and Medicare HMO plans, please review the plan of care and approve it. It will need to be FAXED BACK to us at [phone] for Medicare purposes. For Medicare only, by signing this I certify the plan of care. Please let me know if there are questions or concerns regarding this plan of care. Physician Signature: Date:
== END 2024-12-08 19:00 | disposition home or self-care (01) ==
LOC: PT 12:30
PROVIDERS: PCP Family Medicine; Referring Provider Orthopaedic Surgery Orthopaedic Surgery of the Spine; Visit Provider Orthopaedic Surgery Orthopaedic Surgery of the Spine
DX: S12.691D Other nondisplaced fracture of seventh cervical vertebra, subsequent encounter for fracture with routine healing (principal); M54.12 Radiculopathy, cervical region
CPT/HCPCS: 97110; 97162; 97530

== ENCOUNTER → 2025-05-01 | Outpatient (CLI) | payer OTHER, SELFPAY | END | disposition home or self-care (01) | LOC: MTLAB 10:42 | PROVIDERS: PCP Family Medicine; Referring Provider Physician Assistant; Visit Provider Physician Assistant | DX: R21 Rash and other nonspecific skin eruption (principal); R52 Pain, unspecified | CPT/HCPCS: 36415; 86617 ==